=== PATIENT | female | born 1965 | race African-American/Black ===

== ENCOUNTER 2019-10-20 12:51 | Emergency (ER) | payer MEDICAID ==
[~2019-10-20] VITALS: Ht 157.5 cm; Wt 90.7 kg
[2019-10-20 16:58] VITALS: BP 157/76
[2019-10-20] MEDS ORDERED: ACETAMINOPHEN 325 MG TAB PO ONE (17:15)
[2019-10-20] MEDS ORDERED: METHOCARBAMOL 500 MG TAB PO ONE (17:15)
== END 2019-10-20 18:01 | disposition home or self-care (01) ==
LOC: ER 12:51
DX: M79.604 Pain in right leg (principal); R51 Headache; M54.16 Radiculopathy, lumbar region; Z88.0 Allergy status to penicillin